=== PATIENT | male | born 1955 | race Caucasian/White ===

== ENCOUNTER → 2016-07-02 | Outpatient (CLI) | payer BC ==
[2016-07-02 15:51] LABS: URINE APPEARANCE CLEAR (CLEAR); URINE BILIRUBIN NEG (NEG); URINE COLOR YELLOW; URINE NITRITE NEG (NEG); URINE SPECIFIC GRAVITY 1.007 (1.000-1.030); UROBILINOGEN NEG (NEG); ZZUR CULT IF INDIC CLEAN CATCH NO
[2016-07-02 15:56] LABS: MANUAL MICROSCOPIC REQUIRED? NO; REVIEW REQ? NO
== END | disposition home or self-care (01) ==
LOC: C.LAB1850 14:22
PROVIDERS: ATTEND Registered Nurse
DX: R30.0 Dysuria (principal)

== ENCOUNTER → 2016-07-06 | Outpatient (CLI) | payer BC | END | disposition home or self-care (01) | LOC: C.LABSPEC 12:07 | PROVIDERS: ATTEND Registered Nurse | DX: Z00.00 Encounter for general adult medical examination without abnormal findings (principal); R30.0 Dysuria ==

== ENCOUNTER → 2016-07-29 | Outpatient (CLI) | payer BC | END | disposition home or self-care (01) | LOC: C.LABSPEC 17:27 | PROVIDERS: ATTEND Nurse Practitioner Family | DX: R30.0 Dysuria (principal); R39.9 Unspecified symptoms and signs involving the genitourinary system; N41.9 Inflammatory disease of prostate, unspecified ==

== ENCOUNTER → 2016-10-09 | Outpatient (CLI) | payer BC ==
[2016-10-09 17:21] LABS: BLOOD UREA NITROGEN 11 mg/dl (7-18); BUN/CREATININE RATIO 12.8 (10-20); CALCIUM 8.6 mg/dl (8.5-10.1); CARBON DIOXIDE 26 mmol/L (21-32); CHLORIDE 102 mmol/L (98-107); CREATININE 0.82 mg/dl (0.60-1.40); GLUCOSE 180 mg/dl (70-99); POTASSIUM 3.7 mmol/L (3.5-5.1); SODIUM 135 mmol/L (136-145)
== END | disposition home or self-care (01) ==
LOC: C.LAB1850 14:53
PROVIDERS: ATTEND Nurse Practitioner Family
DX: Z12.5 Encounter for screening for malignant neoplasm of prostate (principal); R39.9 Unspecified symptoms and signs involving the genitourinary system

== ENCOUNTER → 2016-12-09 | Outpatient (CLI) | payer BC ==
[2016-12-09 17:25] LABS: BASO % 0.5 %; BASO ABS # 0.04 K/uL (0-0.2); COMPLETE YES; EOS % 1.3 %; HEMATOCRIT 41.2 % (42-52); IG% 0.3 %; LYMPH % 30.3 %; MEAN CELL VOLUME 82.2 fL (80-100); MEAN CORPUSCULAR HEMOGLOBIN 28.3 pg (25-34); MEAN CORPUSCULAR HGB CONC 34.5 g/dl (32-36); MEAN PLATELET VOLUME 10.3 fL (7.4-10.4); MONO % 7.6 %; PLATELET COUNT 229 K/uL (130-400); RED BLOOD COUNT 5.01 M/uL (4.7-6.1); WHITE BLOOD COUNT 7.59 K/uL (4.8-10.8)
[2016-12-09 18:05] LABS: C-REACTIVE PROTEIN 0.44 mg/dl (0-0.29); THYROID STIMULATING HORMONE 1.54 uIu/ml (0.300-4.500)
--- NOTE | 2016-12-13 10:33 | CODING QUERY NO DIAGNOSIS ---
TREATMENT RENDERED WITHOUT A DIAGNOSIS : 1955 To promote full compliance with coding requirements relating to patient care, physician participation is requested in all cases of medical billing coder uncertainty. Please assist us with providing a diagnosis/symptom for the test(s) below: A diagnosis/symptom was not documented on your Order. A valid diagnosis/symptom is required to bill all insurances. Please remember that we are unable to code a diagnosis of rule out, probable, possible, questionable, or suspected. Tests that require a diagnosis: DOS: 12/09/16 * CBC WITH AUTO DIFFER DIAGNOSIS: * ERYTHROCYTE SEDIMENT DIAGNOSIS: * C-REACTIVE PROTEIN DIAGNOSIS: * THYROID STIMULATING DIAGNOSIS: Provider Signature: Date: Thank you Bernice [facility] Information Management Once completed, please kindly fax back to [phone] For questions please call [phone]
== END | disposition home or self-care (01) ==
LOC: C.RAD1850 15:50
PROVIDERS: ATTEND Internal Medicine
DX: M79.1 Myalgia (principal); E66.9 Obesity, unspecified; L30.1 Dyshidrosis [pompholyx]

== ENCOUNTER → 2017-02-14 | Outpatient (CLI) | payer BC ==
--- NOTE | 2017-02-14 13:36 | DIAGNOSTIC IMAGING REPORT ---
ABDOMINAL ULTRASOUND, RIGHT UPPER QUADRANT HISTORY: K21.9 GERD without esophagitis. COMPARISON: CT of the abdomen and pelvis July 21, 2006. FINDINGS: Hepatic echogenicity is diffusely increased consistent with fatty infiltration. The liver is enlarged. No hepatic lesions are identified and there is no biliary ductal dilatation. The common bile duct measures 4 mm in caliber. The gallbladder is normal. There are no gallstones. The pancreatic body is normal. The head and tail are obscured by overlying bowel gas. There is no right hydronephrosis. IMPRESSION: 1. Fatty infiltration of the liver and moderate hepatomegaly. 2. No gallstones or biliary ductal dilatation. Electronically signed by: Kyle Thompson M.D. 02/14/2017 1:35 PM Dictated Date/Time: 02/14/2017 1:33 PM
[2017-02-14 17:17] LABS: ALBUMIN 3.8 gm/dl (3.4-5.0); TOTAL PROTEIN 7.9 gm/dl (6.4-8.2)
== END | disposition home or self-care (01) ==
LOC: C.ULTRBC 12:56
PROVIDERS: ATTEND Registered Nurse
DX: K21.9 Gastro-esophageal reflux disease without esophagitis (principal)

== ENCOUNTER → 2017-09-15 | Outpatient (CLI) | payer BC ==
[2017-09-15 16:36] LABS: BASO % 0.6 %; BASO ABS # 0.04 K/uL (0-0.2); EOS % 1.5 %; EOS ABS # 0.11 K/uL (0-0.5); HEMATOCRIT 44.4 % (42-52); HEMOGLOBIN 15.4 g/dL (14.0-18.0); IG# 0.02 K/uL (0.00-0.02); LYMPH % 31.2 %; LYMPH ABS # 2.25 K/uL (1.2-3.4); MEAN CORPUSCULAR HEMOGLOBIN 28.8 pg (25-34); MEAN CORPUSCULAR HGB CONC 34.7 g/dl (32-36); MEAN PLATELET VOLUME 10.6 fL (7.4-10.4); MONO % 6.6 %; MONO ABS # 0.48 K/uL (0.11-0.59); NEUT % 59.8 %; NEUT ABS # 4.32 K/uL (1.4-6.5); PLATELET COUNT 218 K/uL (130-400); RED CELL DISTRIBUTION WIDTH CV 12.5 % (11.5-14.5); RED CELL DISTRIBUTION WIDTH SD 37.2 fL (36.4-46.3); WHITE BLOOD COUNT 7.22 K/uL (4.8-10.8)
== END | disposition home or self-care (01) ==
LOC: C.LAB1850 15:16
PROVIDERS: ATTEND Urology
DX: L98.9 Disorder of the skin and subcutaneous tissue, unspecified (principal); N41.9 Inflammatory disease of prostate, unspecified; R39.9 Unspecified symptoms and signs involving the genitourinary system; Z12.5 Encounter for screening for malignant neoplasm of prostate